=== PATIENT | male | born 2000 | race Caucasian/White ===

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

== ENCOUNTER 2022-02-14 20:02 | Emergency (ER) | payer OTHER, SELFPAY ==
[2022-02-14 20:09] VITALS: BP 120/66; PULSE 92; RESP 18; TEMP 36.8; O2SAT 94; BMI 25.4
--- NOTE | 2022-02-14 20:28 | CTR_ITS ---
PROCEDURE INFORMATION: Exam: CT Head Without Contrast Exam date and time: 02/14/2022 8:58 PM Age: 21 years old Clinical indication: Injury or trauma; Fall; Concussion/head injury; Without loss of consciousness; Injury date: Today TECHNIQUE: Imaging protocol: Computed tomography of the head without contrast. Radiation optimization: All CT scans at this facility use at least one of these dose optimization techniques: automated exposure control; mA and/or kV adjustment per patient size (includes targeted exams where dose is matched to clinical indication); or iterative reconstruction. COMPARISON: No relevant prior studies available. RADIATION DOSE METRICS: Total DLP (mGy-cm): 907.2 FINDINGS: Brain: No hemorrhage. No edema, mass effect or midline shift. Cerebral ventricles: No ventriculomegaly. Paranasal sinuses: Visualized sinuses are unremarkable. No fluid levels. Mastoid air cells: No mastoid effusion. Bones/joints: No acute fracture. Soft tissues: Unremarkable. CT/CT head wo con* [id number] IMPRESSION: No acute intracranial abnormality.
--- NOTE | 2022-02-14 20:37 | ED_ITS ---
HPI - Headache General: Chief Complaint: Headache Stated Complaint: head injury from fall Time Seen by Provider: 02/14/22 20:35 [facility] ED PFSH: Medical History (Updated 01/04/21 @ 16:31 by Jackie Gonzalez MD) MDD (major depressive disorder) Suicide attempt by acetaminophen overdose Family History Other Rheumatoid arthritis Social History Smoking and tobacco status: never smoked Alcohol intake: never Current gender identity: Male Course Vital Signs: Vital signs: Vital Signs Temperature 98.3 F 02/14/22 20:09 Pulse Rate 92 02/14/22 20:09 Respiratory Rate 18 02/14/22 20:09 Blood Pressure 120/66 02/14/22 20:09 Pulse Oximetry 94 02/14/22 20:09 Discharge Plan Discharge Condition: Stable Prescriptions: No Action mirtazapine 15 mg tablet 15 mg PO DAILY 30 Days Qty: 30 3RF fluoxetine [Prozac] 20 mg capsule 20 mg PO DAILY 0RF Label Comments: pt not taking Coding Level of Care Code ED Security Operations Manager for Mayra Jaeger
--- NOTE | 2022-02-14 20:40 | W.ED.HA ---
HPI - Headache General: Chief Complaint: Headache Stated Complaint: head injury from fall Time Seen by Provider: 02/14/22 20:35 Source: patient Mode of arrival: ambulatory Limitations: no limitations History of Present Illness: 21-year-old male states that he was playing basketball roughly an hour ago he states that he went for rebound had his legs knocked out from under him and he fell straight backwards hit his head low back states he thinks he had a brief LOC he has had a headache since then denies any neck pain rates his pain a 5 out of 10. Denies any other injuries. Associated symptoms: Deny chest pain, fever(s), nausea, rash or vomiting Review of Systems Const: Denies: fever(s), chills, body aches or change in appetite Eyes: Denies: blurry vision or eye discomfort ENMT: Denies: throat pain or dental pain Card: Denies: chest pain Resp: Denies: dyspnea GI: Denies: abdominal pain, nausea, vomiting or diarrhea : Denies: dysuria Musc: Reports: back pain Skin/Breast: Denies: rash Neuro: Reports: headache(s) Psych: Denies: depression Segundo/Lymph: Denies: easy bruising All/Imm: Denies: urticaria PFSH ED PFSH: Medical History MDD (major depressive disorder) Suicide attempt by acetaminophen overdose Family History Other Rheumatoid arthritis Social History Smoking and tobacco status: never smoked Alcohol intake: never Current gender identity: Male Physical Exam Const: COMMON NORMALS: no acute distress, patient oriented x3 and healthy appearing HENMT: COMMON NORMALS: normocephalic and atraumatic HEAD & SCALP: normocephalic and atraumatic Eye: COMMON NORMALS: Equal, round and reactive pupils present and EOMs intact bilaterally PUPIL: Yes Equal, round and reactive pupils present Neck/C-Spine: COMMON NORMALS: full ROM and supple Chest: COMMONS NORMALS: normal inspection of the chest and normal palpation of entire chest wall Resp: COMMON NORMALS: normal respiratory effort, No retractions, No use of accessory muscles and clear to auscultation bilaterally AUSCULTATION: clear to auscultation bilaterally Cardio: COMMON NORMALS: regular rate, regular rhythm and No murmurs present (Cardio) RATE: regular rate RHYTHM: regular rhythm GI: COMMON NORMALS: Normal to inspection, nondistended, normoactive bowel sounds present, Soft to palpation, non-tender and no masses PALPATION: Yes Soft to palpation Back/Pelvis: OTHER: Tenderness over right lower back no midline tenderness Extremity: COMMON NORMALS: normal to inspection and full ROM Neuro: COMMON NORMALS: patient oriented x3, moves all extremities and no focal motor deficits Psych: COMMON NORMALS: mental status grossly normal, Normal thought process present and cooperative THOUGHT PROCESS: Normal thought process present Skin: COMMON NORMALS: no rashes or lesions noted and no wounds GENERAL SKIN EXAM: no rashes or lesions noted Course Vital Signs: Vital signs: Vital Signs Temperature 98.3 F 02/14/22 20:09 Pulse Rate 75 02/14/22 21:22 Respiratory Rate 17 02/14/22 21:22 Blood Pressure 124/62 02/14/22 21:22 Pulse Oximetry 93 02/14/22 21:22 MDM - Headache Medical Decision Making Patient presents here with a closed head injury also left lower lumbar contusion he has no midline back pain does not require any imaging of his back head CT is normal he is stable for discharge is to follow-up PCP and return if worsening. Lab Data Radiology Impressions Head CT 02/14/22 20:28 IMPRESSION: No acute intracranial abnormality. Discharge Plan Discharge Patient Disposition: Home Clinical Impression: Closed head injury Condition: Stable Prescriptions: New methocarbamol 750 mg tablet 750 mg PO Q6H PRN (Reason: spasms) Qty: 20 0RF Naprosyn 500 mg tablet 500 mg PO BID PRN (Reason: pain) Qty: 20 0RF Discharge Orders: Discharge ED (Routine); Ordered 02/14/22 Ordered By: Clifford Cifuentes Discharge Diet: Advance as tolerated Discharge Activity: Resume usual activity Patient Instructions: Head Injury (ED) Coding Level of Care Code ED Attendant Coin Operated Laundry for Tomasag Fwd Exam Comprehensive
[2022-02-14 21:22] VITALS: BP 124/62; PULSE 75; RESP 17; O2SAT 93
[2022-02-14 22:57] VITALS: BP 118/58; PULSE 70; O2SAT 98
== END 2022-02-14 23:00 | disposition home or self-care (01) ==
PROVIDERS: Emergency Provider Emergency Medicine
DX: S09.90XA Unspecified injury of head, initial encounter (principal); W18.39XA Other fall on same level, initial encounter; Y93.67 Activity, basketball
CPT/HCPCS: 70450; 99282